=== PATIENT | male | born 1975 | race Caucasian/White ===

== ENCOUNTER 2019-05-09 22:02 | Emergency (ER) | payer MEDICAID, SELFPAY ==
[~2019-05-09] VITALS: Ht 170.2 cm; Wt 65.8 kg
[~2019-05-09 22:02] MED LIST: KLONOPIN1 MG ORAL; NEURONTIN800 MG ORAL
[2019-05-09 22:07] VITALS: BP 131/80
--- NOTE | 2019-05-09 22:39 | Emergency Room Report ---
History of Present Illness General Chief Complaint: Chest Pain Source: Patient Present Illness HPI This is a 43-year-old male with a history of seizure. He presents with chief complaint of shortness of breath and chest pain. He was at [employer] and was shoplifting. He was tested by security there. He then developed shortness of breath. And then 911 was called. He then complaining of chest pain. Please was called but they have not showed up. Patient complained of diffuse pain mostly in the right side. No nausea no vomiting. No trauma. Nothing made it better. Nothing made it worse. Allergies: Coded Allergies: CARBAMAZEPINE (Unverified Allergy, Unknown, 01/29/14) DIVALPROEX SODIUM (Unverified Allergy, Unknown, 01/29/14) LEVETIRACETAM (Unverified Allergy, Unknown, 01/29/14) PHENYTOIN (Unverified Allergy, Unknown, 01/29/14) TOPIRAMATE (Unverified Allergy, Unknown, 01/29/14) Patient History Past Medical History: see triage record, old chart reviewed, seizures Past Surgical History: other Pertinent Family History: none Social History: Reports: smoking Immunizations: other Reviewed Nursing Documentation: PMH: Agreed; PSxH: Agreed Nursing Documentation-PMH Past Medical History: No Stated History Hx Seizures: Yes - LAST SZ 6 MONTHS AGO Review of Systems Eye: Denies: eye pain, blurred vision ENT: Denies: ear pain, nose congestion, throat swelling Respiratory: Reports: shortness of breath; Denies: cough Cardiovascular: Reports: chest pain; Denies: palpitations Gastrointestinal: Denies: abdominal pain, diarrhea, nausea, vomiting Musculoskeletal: Denies: back pain, joint pain Skin: Denies: rash Neurological: Denies: headache, numbness Endocrine: Denies: increased thirst, increased urine Hematologic/Lymphatic: Denies: easy bruising All Other Systems: negative except mentioned in HPI Physical Exam Vital Signs Date Time Temp Pulse Resp B/P (MAP) Pulse Ox O2 Delivery O2 Flow Rate FiO2 05/09/19 22:05 99.1 106 18 131/80 (97) 98 Room Air Vitals normal Sp02 EP Interpretation: reviewed, normal General Appearance: well appearing, no apparent distress, alert Head: normocephalic, atraumatic Eyes: bilateral eye PERRL, bilateral eye EOMI ENT: hearing grossly normal, normal pharynx Neck: full range of motion, supple, no meningismus Respiratory: chest non-tender, lungs clear, normal breath sounds Cardiovascular #1: regular rate, rhythm, no murmur Gastrointestinal: normal bowel sounds, non tender, no mass, no organomegaly, no bruit, non-distended Musculoskeletal: back normal, gait/station normal, normal range of motion Psychiatric: mood/affect normal Medical Decision Making Diagnostic Impression: Primary Impression: Chest pain Qualified Codes: R07.9 - Chest pain, unspecified ER Course Patient complained of chest pain and shortness of breath. Wants to chief security officer remove the handcuff and patient found out that police is not coming anytime soon, he said he got better and wants to leave. He went to go outside and smoke. Pain and shortness of breath went away. I suspect this is a malingering. EKG Diagnostic Results Rate: normal Rhythm: NSR ST Segments: no acute changes Rhythm Strip Diag. Results EP Interpretation: yes Rate: 100 Rhythm: NSR, no PVC's, no ectopy Last Vital Signs Date Time Temp Pulse Resp B/P (MAP) Pulse Ox O2 Delivery O2 Flow Rate FiO2 05/09/19 22:07 99.1 106 18 131/80 98 Room Air Status: improved Disposition: HOME, SELF-CARE Condition: Stable Scott Olivas MD May 09, 2019 22:39
[2019-05-09 22:41] VITALS: BP 131/80
== END 2019-05-09 22:41 | disposition home or self-care (01) ==
LOC: EDUNIT# 22:02 → EDBD 22:02 → EMR 22:40
DX: R07.9 Chest pain, unspecified (principal); F17.200 Nicotine dependence, unspecified, uncomplicated; G40.909 Epilepsy, unspecified, not intractable, without status epilepticus; Z88.8 Allergy status to other drugs, medicaments and biological substances
CPT/HCPCS: 99281